=== PATIENT | female | born 1935 | race Caucasian/White ===

== ENCOUNTER → 2023-12-10 14:45 | Outpatient (REF) | payer OTHER, SELFPAY | LOC: HWRCS 14:45 | PROVIDERS: ATTENDING PHYSICIAN Registered Nurse | DX: R01.1 Cardiac murmur, unspecified (principal) | CPT/HCPCS: 93306 ==

== ENCOUNTER → 2025-08-11 12:58 | Outpatient (REF) | payer OTHER, SELFPAY | LOC: RAD 12:58 | PROVIDERS: ATTENDING PHYSICIAN Nurse Practitioner Adult Health | DX: M54.6 Pain in thoracic spine (principal); Z91.81 History of falling; R07.89 Other chest pain | CPT/HCPCS: 71101; 72072 ==